=== PATIENT | male | born 1955 | race African-American/Black ===

== ENCOUNTER 2017-01-24 12:17 | Emergency (ER) | payer OTHER ==
[~2017-01-24] VITALS: Ht 180.3 cm; Wt 81.6 kg
[~2017-01-24 12:17] MED LIST: AMOXICILLIN500 MG PO; ASPIR 8181 MG ORAL; AURALGAN OTIC S14 ML LEFT EAR; BENAZEPRIL HCL10 MG ORAL; ERYTHROMYCIN3.5 GM BOTH EYES; GERD MEDICINE; HYDROC; IBUPROFEN600 MG ORAL; ILOTYCIN3.5 GM TOP; VICODIN 5-5001 EACH PO
[2017-01-24] MEDS ORDERED: IBUPROFEN600 MG ORAL (14:09)
[2017-01-24 14:25] VITALS: BP 139/89
--- NOTE | 2017-01-24 15:28 | Diagnostic Imaging Report ---
Indication: Pain Findings: 3 views of the right wrist were obtained. No acute fracture or malalignment identified. There is an old healed fracture of the fifth metacarpal. Soft tissues are unremarkable. Impression: No acute injury
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
== END 2017-01-24 14:25 | disposition home or self-care (01) ==
LOC: EMR 13:08
DX: S63.501A Unspecified sprain of right wrist, initial encounter (principal); V09.9XXA Pedestrian injured in unspecified transport accident, initial encounter; Y93.55 Activity, bike riding; Y92.410 Unspecified street and highway as the place of occurrence of the external cause; Z88.6 Allergy status to analgesic agent; I10 Essential (primary) hypertension; M19.90 Unspecified osteoarthritis, unspecified site; S60.221A Contusion of right hand, initial encounter
CPT/HCPCS: 99283

== ENCOUNTER 2017-06-02 09:14 | Emergency (ER) | payer OTHER ==
[~2017-06-02] VITALS: Ht 180.3 cm; Wt 81.6 kg
[2017-06-02 09:15] VITALS: BP 143/102
[2017-06-02] MEDS ORDERED: ROBAXIN-750750 MG PO (09:36)
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
[2017-06-02] MEDS ORDERED: Methocarbamol 750mg tab ORAL ONE (09:45)
[2017-06-02] MEDS ORDERED: Ketorolac 60mg Inj IM ONE (09:45)
[2017-06-02 09:53] VITALS: BP 134/93
[2017-06-02 09:56] VITALS: BP 134/93
== END 2017-06-02 09:56 | disposition home or self-care (01) ==
LOC: EMR 09:23
DX: M54.5 Low back pain (principal); G89.29 Other chronic pain; I10 Essential (primary) hypertension; J45.909 Unspecified asthma, uncomplicated; K21.9 Gastro-esophageal reflux disease without esophagitis; M19.90 Unspecified osteoarthritis, unspecified site; Z88.6 Allergy status to analgesic agent
CPT/HCPCS: 96372; 99283

== ENCOUNTER 2017-06-13 09:11 | Emergency (ER) | payer OTHER ==
[~2017-06-13] VITALS: Ht 180.3 cm; Wt 83.9 kg
[~2017-06-13 09:11] MED LIST changes: +ROBAXIN-750750 MG PO
[2017-06-13 09:21] VITALS: BP 149/94
[2017-06-13] MEDS ORDERED: PERCOCET 5-3251 EACH ORAL (09:36)
[2017-06-13] MEDS ORDERED: Ketorolac 30mg Inj IM ONE (09:45)
[2017-06-13 09:53] VITALS: BP 145/87
--- NOTE | 2017-06-13 13:48 | Emergency Room Report ---
History of Present Illness General Chief Complaint: Pain Source: Patient, Medical Record Present Illness HPI Patient presents emergency department today complaining of lower back pain and left leg pain. Patient states that he has is to sciatica. He denies any chest pain shortness breath. Denies any trauma. States any some pain medications. He has been taking medications that was prescribed the ER without much improvement. Review medical records show the patient was on Robaxin. Patient is not taking any narcotics. No other complaints are noted. Symptoms noted to be moderate to severe. Patient denies any dysuria or difficulty with urination or urinary frequency.No other modifying factors. No other associated signs and symptoms. No other complaints were noted. Allergies: Coded Allergies: CODEINE (Verified Allergy, Unknown, 10/01/16) Patient History Past Medical History: HTN, asthma, other - gerd Past Surgical History: none Pertinent Family History: none Social History: Denies: alcohol use, drug use, smoking Reviewed Nursing Documentation: PMH: Agreed, PSxH: Agreed Nursing Documentation-PMH Past Medical History: No History, Except For Hx Hypertension: Yes Hx Asthma: Yes Hx Gastrointestinal Problems: Yes - GERD Hx Neurological Problems: Yes - ARTHITIS Review of Systems All Other Systems: negative except mentioned in HPI Physical Exam Vital Signs Date Time Temp Pulse Resp B/P Pulse Ox O2 Delivery O2 Flow Rate FiO2 06/13/17 09:13 98.1 64 16 149/94 98 Room Air Sp02 EP Interpretation: reviewed, normal General Appearance: normal inspection, well appearing, no apparent distress, alert Head: atraumatic Eyes: bilateral eye normal inspection ENT: normal ENT inspection, hearing grossly normal, normal voice Neck: normal inspection, full range of motion, supple, no bony tend Respiratory: normal inspection, lungs clear, normal breath sounds, no respiratory distress, no retraction, no wheezing Cardiovascular #1: regular rate, rhythm, no edema Gastrointestinal: normal inspection, normal bowel sounds, non tender, soft, no guarding, no hernia Genitourinary: no CVA tenderness Musculoskeletal: normal inspection, back normal, normal range of motion Neurologic: normal inspection, alert, responsive, speech normal Psychiatric: normal inspection, judgement/insight normal, mood/affect normal Skin: normal inspection, normal color, no rash Medical Decision Making Diagnostic Impression: Primary Impression: Lower back pain ER Course Patient presents emergency department today complaining lower back pain. Differential considerations include fracture dislocation versus strain versus radiculopathy. Given patient has had prior episodes before I felt the patient was fairly low risk. I did offer x-rays but he declined. Patient requested pain medications. Patient was given one dose of Toradol and prescription for pain medications here recommend close outpatient followup.Patient is advised to follow up with primary doctor in 2-3 days and return the emergency room for any worsening symptoms and as needed. Last Vital Signs Date Time Temp Pulse Resp B/P Pulse Ox O2 Delivery O2 Flow Rate FiO2 06/13/17 09:53 98.1 65 16 145/87 98 Room Air Status: improved Disposition: HOME, SELF-CARE Condition: Stable Scripts Oxycodone/Acetaminophen 5-325* (PERCOCET 5-325 MG TABLET*) 1 Each Tablet 1 TAB ORAL Q6H Y for For Pain, #30 TAB Prov: SUGAR BALDERAS M.D. 06/13/17 [facility] (PCP) Patient Instructions: Sciatica, Sciatica, [id number] SUGAR BALDERAS M.D. Jun 13, 2017 13:48
== END 2017-06-13 09:55 | disposition home or self-care (01) ==
LOC: EMR 09:45
DX: M54.5 Low back pain (principal); M79.605 Pain in left leg; I10 Essential (primary) hypertension; J45.909 Unspecified asthma, uncomplicated; Z88.6 Allergy status to analgesic agent; K21.9 Gastro-esophageal reflux disease without esophagitis
CPT/HCPCS: 96372; 99283; J1885

== ENCOUNTER 2017-10-01 08:52 | Emergency (ER) | payer OTHER ==
[~2017-10-01] VITALS: Ht 180.3 cm; Wt 79.4 kg
[~2017-10-01 08:52] MED LIST changes: +PERCOCET 5-3251 EACH ORAL
[2017-10-01 09:05] VITALS: BP 130/83
[2017-10-01] MEDS ORDERED: FLONASE ALLERG9.9 ML NS (09:54)
[2017-10-01 09:55] VITALS: BP 130/83
--- NOTE | 2017-10-01 13:36 | Emergency Room Report ---
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." Denies fever/chills, ear pain Nasal congestion Allergies: Coded Allergies: CODEINE (Verified Allergy, Unknown, 10/01/16) Patient History Past Medical History: other - Known left TM rupture Past Surgical History: none Pertinent Family History: none Social History: Denies: smoking, alcohol use, drug use Immunizations: UTD Reviewed Nursing Documentation: PMH: Agreed, PSxH: Agreed Nursing Documentation-PMH Hx Hypertension: Yes Hx Asthma: Yes Hx Gastrointestinal Problems: Yes - GERD Hx Neurological Problems: Yes - ARTHITIS Review of Systems All Other Systems: negative except mentioned in HPI Physical Exam Vital Signs Date Time Temp Pulse Resp B/P (MAP) Pulse Ox O2 Delivery O2 Flow Rate FiO2 10/01/17 09:05 97.9 63 17 130/83 97 Room Air Sp02 EP Interpretation: reviewed, normal General Appearance: normal inspection, well appearing, no apparent distress, alert, GCS 15, non-toxic Head: normocephalic, atraumatic Eyes: bilateral eye PERRL, bilateral eye EOMI ENT: normal ENT inspection, hearing grossly normal, normal voice, nasal congestion, other - left TM congetion, small TM rupture. Non pinna ttp. No discharge in canal. Right TM normal Neck: normal inspection, full range of motion, supple, no bony tend Respiratory: normal inspection, lungs clear, normal breath sounds, no respiratory distress, no retraction, no wheezing Cardiovascular #1: regular rate, rhythm, no edema Gastrointestinal: normal inspection, normal bowel sounds, non tender, soft, no guarding, no hernia Genitourinary: no CVA tenderness Musculoskeletal: normal inspection, back normal, normal range of motion, Marisel' s Sign negative Neurologic: normal inspection, alert, responsive, speech normal Psychiatric: normal inspection, judgement/insight normal, mood/affect normal Skin: normal inspection, normal color, no rash Medical Decision Making Diagnostic Impression: Primary Impression: Earache symptoms in left ear Additional Impressions: Nasal congestion Perforated left tympanic membrane on examination ER Course Nasal congestion, ?chronic left TM rupture Advised STOP drops or any fluid into left ear Flonase to ease sinus congestion F/up with PMD or ENT Last Vital Signs Date Time Temp Pulse Resp B/P (MAP) Pulse Ox O2 Delivery O2 Flow Rate FiO2 10/01/17 09:55 97.9 62 17 130/83 100 Room Air Status: improved Disposition: HOME, SELF-CARE Condition: Improved Scripts Fluticasone Propionate (Flonase Allergy Relief) 9.9 Ml [place].susp 9.9 ML NS BID for 7 Days, #1 UNIT Prov: JEWEL CORNEJO M.D. 10/01/17 Referrals: NON PHYSICIAN (PCP) Patient Instructions: Eardrum Perforation, [id number] JEWEL CORNEJO M.D. Oct 01, 2017 13:36
== END 2017-10-01 09:55 | disposition home or self-care (01) ==
LOC: EMR 09:54
DX: H92.02 Otalgia, left ear (principal); R09.81 Nasal congestion; H72.92 Unspecified perforation of tympanic membrane, left ear; I10 Essential (primary) hypertension; J45.909 Unspecified asthma, uncomplicated; Z88.6 Allergy status to analgesic agent; K21.9 Gastro-esophageal reflux disease without esophagitis
CPT/HCPCS: 99283

== ENCOUNTER 2017-10-05 13:34 | Emergency (ER) | payer OTHER ==
[~2017-10-05] VITALS: Ht 180.3 cm; Wt 79.4 kg
[~2017-10-05 13:34] MED LIST changes: +FLONASE ALLERG9.9 ML NS
[2017-10-05 14:01] VITALS: BP 130/82
[2017-10-05] MEDS ORDERED: NAPROXEN500 M2 ORAL (14:03)
[2017-10-05] MEDS ORDERED: CORTISPORIN EAR10 ML LEFT EAR (14:03)
[2017-10-05 14:10] VITALS: BP 130/88
--- NOTE | 2017-10-05 14:41 | Emergency Room Report ---
History of Present Illness General Chief Complaint: Earache Source: Patient Present Illness HPI The patient is a 62 yo M presenting for left ear pain which began 4 days ago. Pain is a 10 out of 10 dull ache and does not radiate from the left ear. Worse with touch. he states that he frequently gets ear infections and this feels the same. He denies any other symptoms including N, V, F, chills, SOB, CP, rash, sore throat, cough Allergies: Coded Allergies: CODEINE (Verified Allergy, Unknown, 10/01/16) Patient History Past Medical History: see triage record Pertinent Family History: none Reviewed Nursing Documentation: PMH: Agreed, PSxH: Agreed Nursing Documentation-PMH Hx Hypertension: Yes Hx Asthma: Yes Hx Gastrointestinal Problems: Yes - GERD Hx Neurological Problems: Yes - ARTHITIS Review of Systems All Other Systems: negative except mentioned in HPI Physical Exam Vital Signs Date Time Temp Pulse Resp B/P (MAP) Pulse Ox O2 Delivery O2 Flow Rate FiO2 10/05/17 13:41 97.9 62 20 134/90 99 10/05/17 14:01 Room Air Sp02 EP Interpretation: reviewed, normal General Appearance: no apparent distress, alert, GCS 15, non-toxic Head: normocephalic, atraumatic Eyes: bilateral eye normal inspection, bilateral eye PERRL ENT: uvula midline, other - L EAC has white DC. TTP Neck: full range of motion, supple/symm/no masses Respiratory: chest non-tender, lungs clear, normal breath sounds, speaking full sentences Cardiovascular #1: regular rate, rhythm, no edema Musculoskeletal: back normal, gait/station normal, normal range of motion, non- tender Neurologic: alert, oriented x3, responsive, motor strength/tone normal, sensory intact, speech normal Psychiatric: judgement/insight normal, memory normal, mood/affect normal, no suicidal/homicidal ideation Skin: normal color, no rash, warm/dry, well hydrated Lymphatic: no adenopathy Medical Decision Making PA Attestation Dr. Ortiz is my supervising physician. Patient management was discussed with my supervising physician Diagnostic Impression: Primary Impression: Otitis externa of left ear Qualified Codes: H60.502 - Unspecified acute noninfective otitis externa, left ear ER Course The patient is a 62 yo M presenting for left ear pain which began 4 days ago Differential diagnosis include but not limited to otitis externa, otitis media, mastoiditis, sinusitis, pharyngitis Physical exam: Vitals within normal limits. No apparent distress. HEENT: Left ear external auditory canal is erythematous and edematous. White discharge is noted. Tympanic membrane is intact. No bulging. There is no cervical lymphadenopathy. Otherwise exam is unremarkable The patient will be discharged home with a prescription for Cortisporin Last Vital Signs Date Time Temp Pulse Resp B/P (MAP) Pulse Ox O2 Delivery O2 Flow Rate FiO2 10/05/17 14:10 97.9 72 19 130/88 99 Room Air Status: improved Disposition: HOME, SELF-CARE Condition: Improved Scripts Naproxen* (NAPROXEN*) 500 Mg Tablet 500 MG ORAL TWICE A DAY, #30 TAB Prov: HERMAN PARRA 10/05/17 Neomycin/Polymyxin B Sulf/Hc* (CORTISPORIN EAR SOLUTION*) 10 Ml Solution 4 DROP LEFT EAR QID, #10 ML 0 Refills Prov: HERMAN PARRA 10/05/17 Referrals: [facility] (PCP) Patient Instructions: Otitis Externa Additional Instructions: I discussed my findings with the patient. All questions and concerns have been answered. Treatment and medication compliance have been addressed. I advised the patient that they need to follow up with PMD in 3-5 days. Return to ED if symptoms worsen, new symptoms arise, or if needed for any reason. Patient verbalized understanding of discharge instructions. HERMAN PARRA Oct 05, 2017 14:41
== END 2017-10-05 14:10 | disposition home or self-care (01) ==
LOC: EMR 13:49
DX: H60.92 Unspecified otitis externa, left ear (principal); J45.909 Unspecified asthma, uncomplicated; I10 Essential (primary) hypertension; K21.9 Gastro-esophageal reflux disease without esophagitis; Z88.6 Allergy status to analgesic agent
CPT/HCPCS: 99284

== ENCOUNTER → 2017-10-21 | Emergency (ER) | payer OTHER ==
[~2017-10-21] VITALS: Ht 180.3 cm; Wt 81.6 kg
[~2017-10-21] MED LIST changes: +CORTISPORIN EAR10 ML LEFT EAR; +NAPROXEN500 M2 ORAL
[2017-10-21 11:09] VITALS: BP 136/88
--- NOTE | 2017-10-25 08:35 | Emergency Room Report ---
History of Present Illness General Chief Complaint: Earache Present Illness HPI Patient is a 62 year old male who presented after increased left ear discomfort and difficulty hearing. Patient had previously been using ear drops for swimmers ear. He reported previous surgery on left eardrum after perforation. He denies any fever or leakage of fluid. He denied cough or nasal congestion or recent trauma. Allergies: Coded Allergies: CODEINE (Verified Allergy, Unknown, 10/01/16) Patient History Past Medical History: see triage record Reviewed Nursing Documentation: PMH: Agreed, PSxH: Agreed Nursing Documentation-PMH Hx Hypertension: Yes Hx Asthma: Yes Hx Gastrointestinal Problems: Yes - GERD Hx Neurological Problems: Yes - ARTHITIS Review of Systems All Other Systems: negative except mentioned in HPI Physical Exam Vital Signs Date Time Temp Pulse Resp B/P (MAP) Pulse Ox O2 Delivery O2 Flow Rate FiO2 10/21/17 11:09 97.9 84 20 136/88 99 Room Air General Appearance: well appearing, no apparent distress, alert, GCS 15 Head: normocephalic, atraumatic ENT: hearing grossly normal, normal voice, other - left ear canal with soft yellow cerumen, no bleeding, tM obscured by wax, minimal canal swelliing Neck: full range of motion, supple Respiratory: no respiratory distress, speaking full sentences Musculoskeletal: no calf tenderness Neurologic: normal gait Psychiatric: mood/affect normal Skin: no rash Medical Decision Making Diagnostic Impression: Primary Impression: Otitis externa of left ear Additional Impression: Excessive cerumen in left ear canal ER Course Patient presented for left ear pain. Differential diagnosis included but was not limited to otitis media, cerumen impaction, foreign body, perforated eardrum , mastoiditis, among others. Patient has a benign exam and does not appear to require lab testing or imaging at this time. Cerumen was removed with a curette followed by irrigation. Patient was advised on care for ear. He was advised to follow up with his physician for recheck in the next few days. He was to continue his eardrops for external otitis. He was to return for fever, increased pain or other concerns. Last Vital Signs Date Time Temp Pulse Resp B/P (MAP) Pulse Ox O2 Delivery O2 Flow Rate FiO2 10/21/17 11:09 97.9 84 20 136/88 99 Room Air Status: improved Disposition: HOME, SELF-CARE Condition: Improved Referrals: [facility] ([facility]P) Patient Instructions: Otitis Externa Ramiro Hendrix Oct 25, 2017 08:35
== END | disposition home or self-care (01) ==
LOC: EMR 11:40
DX: H60.92 Unspecified otitis externa, left ear (principal); H61.22 Impacted cerumen, left ear; I10 Essential (primary) hypertension; K21.9 Gastro-esophageal reflux disease without esophagitis; Z88.6 Allergy status to analgesic agent
CPT/HCPCS: 69210; 99282

== ENCOUNTER 2018-02-25 17:57 | Emergency (ER) | payer MEDICARE, OTHER ==
[~2018-02-25] VITALS: Ht 180.3 cm; Wt 81.6 kg
--- NOTE | 2018-02-25 19:04 | Emergency Room Report ---
History of Present Illness General Chief Complaint: Upper Respiratory Illness Source: Patient Present Illness HPI 63-year-old male presents to the emergency department complaining of cough, generalized body-aches, sore throat and subjective fevers and chills 5 days.Pt. states moderate phlegm in his throat. Patient states he has been attempting remedies at home however he has not gotten better. Patient denies swelling of the lower extremities, productive cough, headache, dizziness, nausea or vomiting. Denies Palpitations, LOC, AMS, dizziness, Changes in Vision , Sensation, paresthesias, or a sudden severe headache. Denies recent travel or ill contacts. Allergies: Coded Allergies: CODEINE (Verified Allergy, Unknown, 10/01/16) Patient History Past Medical History: see triage record Past Surgical History: none Pertinent Family History: none Reviewed Nursing Documentation: PMH: Agreed; PSxH: Agreed Nursing Documentation-PMH Hx Hypertension: Yes Hx Asthma: Yes Hx Gastrointestinal Problems: Yes - GERD Hx Neurological Problems: Yes - ARTHITIS Review of Systems All Other Systems: negative except mentioned in HPI Physical Exam Vital Signs Date Time Temp Pulse Resp B/P (MAP) Pulse Ox O2 Delivery O2 Flow Rate FiO2 02/25/18 18:03 98.7 70 19 98.8 02/25/18 18:19 Room Air Sp02 EP Interpretation: reviewed - initially missing from triage, re-measured at 96%, normal General Appearance: no apparent distress, alert, GCS 15, non-toxic Head: normocephalic, atraumatic Eyes: bilateral eye normal inspection, bilateral eye PERRL ENT: hearing grossly normal, normal voice, TMs + canals normal, uvula midline, moist mucus membranes, nasal congestion, pharyngeal erythema Neck: full range of motion Respiratory: chest non-tender, lungs clear, normal breath sounds, no respiratory distress, no accessory muscle use, no wheezing, speaking full sentences Cardiovascular #1: regular rate, rhythm, no edema, normal capillary refill Gastrointestinal: non tender, soft Musculoskeletal: back normal, gait/station normal, normal range of motion, non- tender Neurologic: alert, oriented x3, responsive, motor strength/tone normal, sensory intact, normal gait, speech normal, grossly normal Psychiatric: judgement/insight normal Skin: normal color, no rash, warm/dry, well hydrated Lymphatic: no adenopathy Medical Decision Making PA Attestation Dr. trejo is my supervising Physician whom patient management has been discussed with. Diagnostic Impression: Primary Impression: Bronchitis Additional Impression: Upper respiratory infection Qualified Codes: J06.9 - Acute upper respiratory infection, unspecified ER Course 63-year-old male presents to the emergency department complaining of cough, generalized body-aches, sore throat and subjective fevers and chills 5 days.Pt. states moderate phlegm in his throat. Patient states he has been attempting remedies at home however he has not gotten better. Patient denies swelling of the lower extremities, productive cough, headache, dizziness, nausea or vomiting. Denies Palpitations, LOC, AMS, dizziness, Changes in Vision , Sensation, paresthesias, or a sudden severe headache. Denies recent travel or ill contacts. Ddx considered but are not limited to URI, pneumonia, PE, strep pharyngitis, meningitis. Vital signs: Pt.is afebrile VS are WNL H&PE are most consistent with bronchitis---NAD, nontoxic in appearance no evidence of acute bacterial infection at this time. Is oxygenating well and does not show difficult to breathing. ORDERS: none required at this time, the diagnosis is clinical ED INTERVENTIONS: None required at this time. DISCHARGE: At this time pt. is stable for d/c to home. Will provide printed patient care instructions, and any necessary prescriptions. Care plan and follow up instructions have been discussed with the patient prior to discharge. Last Vital Signs Date Time Temp Pulse Resp B/P (MAP) Pulse Ox O2 Delivery O2 Flow Rate FiO2 02/25/18 18:19 70 19 Room Air 02/25/18 18:03 98.7 98.8 Disposition: HOME, SELF-CARE Condition: Stable Scripts Albuterol Sulfate* (ALBUTEROL SULFATE MDI*) 8.5 Gm Hfa.aer.ad 2 PUFF INH Q4H, #1 INH 0 Refills Prov: Lien Higuera P.A. 02/25/18 Acetaminophen* (TYLENOL EXTRA STRENGTH*) 500 Mg Tablet 500 MG ORAL Q6H PRN for Mild Pain/Temp > 100.5, #20 TAB 0 Refills Prov: Lien Higuera P.A. 02/25/18 Guaifenesin (Guaifenesin) 1,200 Mg Tab.er.12h 1200 MG PO BID for 10 Days, #20 TAB Prov: Lien Higuera 02/25/18 D-Methorphan Hb/Prometh Hcl* (PROMETHAZINE-DM SYRUP*) 118 Ml Syrup 5 ML ORAL Q6H PRN for For Cough, #120 ML 0 Refills Prov: Lien Higuera 02/25/18 Patient Instructions: Upper Respiratory Infection, Adult Additional Instructions: Take medications as directed. Follow up with a Primary Care Provider in 3-5 days, even if your symptoms have resolved. --Please review list of primary care clinics, if you do not already have a primary care provider Return sooner to ED if new symptoms occur, or current symptoms become worse. Do not drink alcohol, drive, or operate heavy machinery while taking Cough Syrup as this may cause drowsiness. - Please note that this Emergency Department Report was dictated using [employer] puller technology software, occasionally this can lead to erroneous entry secondary to interpretation by the dictation equipment. Lien Higuera Feb 25, 2018 19:03
[2018-02-25] MEDS ORDERED: GUAIFENESIN1200 MG PO (19:08)
[2018-02-25] MEDS ORDERED: PROMETHAZINE-D118 ML ORAL (19:08)
[2018-02-25] MEDS ORDERED: ALBUTEROL SULF8.5 GM INH (19:08)
[2018-02-25] MEDS ORDERED: TYLENOL EXTRA500 MG ORAL (19:08)
[2018-02-25 19:24] VITALS: BP 127/86
== END 2018-02-25 19:24 | disposition home or self-care (01) ==
LOC: EMR 19:15
DX: J40 Bronchitis, not specified as acute or chronic (principal); J06.9 Acute upper respiratory infection, unspecified; Z88.5 Allergy status to narcotic agent; K21.9 Gastro-esophageal reflux disease without esophagitis; M19.90 Unspecified osteoarthritis, unspecified site
CPT/HCPCS: 99284

== ENCOUNTER 2018-04-05 12:52 | Emergency (ER) | payer MEDICARE, OTHER ==
[~2018-04-05] VITALS: Ht 180.3 cm; Wt 81.6 kg
[~2018-04-05 12:52] MED LIST changes: +ALBUTEROL SULF8.5 GM INH; +GUAIFENESIN1200 MG PO; +PROMETHAZINE-D118 ML ORAL; +TYLENOL EXTRA500 MG ORAL
[2018-04-05 13:05] VITALS: BP 146/101
[2018-04-05] MEDS ORDERED: Norco 5mg/325mg tab ORAL ONE (13:15)
--- NOTE | 2018-04-05 13:18 | Emergency Room Report ---
History of Present Illness General Chief Complaint: Skin Rash/Abscess Present Illness HPI 63-year-old male presents to the emergency department complaining of localized swelling, tenderness, erythema to the lateral aspect of his lower eyelid 4 days. Patient reports that he is experiencing 10 out of 10 in severity pain which is exacerbated when he attempts to sleep and accidentally rolls onto the left side. Patient states that he has an appointment with client technical professional tomorrow for incision and drainage. Patient reports he has a history of similar symptoms on the right eye which required the same treatment. Patient denies history of foreign object in his eye, he reports some itching prior to onset he denies discharge. Denies Discharge, Loss of vision, Floaters, Flashing lights, Diplopia/blurry vision, Increased tearing. Allergies: Coded Allergies: CODEINE (Verified Allergy, Unknown, 10/01/16) Patient History Past Medical History: see triage record Past Surgical History: none Pertinent Family History: none Reviewed Nursing Documentation: PMH: Agreed; PSxH: Agreed Nursing Documentation-PMH Hx Hypertension: Yes Hx Asthma: Yes Hx Gastrointestinal Problems: Yes - GERD Hx Neurological Problems: Yes - ARTHITIS Review of Systems All Other Systems: negative except mentioned in HPI Physical Exam Vital Signs Date Time Temp Pulse Resp B/P (MAP) Pulse Ox O2 Delivery O2 Flow Rate FiO2 18 13:00 98.3 84 20 146/101 99 Room Air 98.2 Sp02 EP Interpretation: reviewed, normal General Appearance: no apparent distress, alert, GCS 15, non-toxic Head: normocephalic, atraumatic Eyes: bilateral eye normal inspection, bilateral eye PERRL, bilateral eye EOMI , bilateral eye other - well circumscribed 1cm ENT: hearing grossly normal, normal voice Neck: full range of motion Respiratory: chest non-tender, lungs clear, normal breath sounds, speaking full sentences Cardiovascular #1: regular rate, rhythm, no edema Gastrointestinal: normal bowel sounds, non tender, soft Rectal: deferred Genitourinary: normal inspection Musculoskeletal: back normal, gait/station normal, normal range of motion, non- tender Neurologic: alert, oriented x3, responsive, motor strength/tone normal, sensory intact, speech normal, grossly normal Psychiatric: judgement/insight normal Skin: normal color, no rash, warm/dry, well hydrated Lymphatic: no adenopathy Medical Decision Making PA Attestation Dr. Keyes is my supervising Physician whom patient management has been discussed with. Diagnostic Impression: Primary Impression: Hordeolum external Qualified Codes: H00.015 - Hordeolum externum left lower eyelid ER Course 63-year-old male presents to the emergency department complaining of localized swelling, tenderness, erythema to the lateral aspect of his lower eyelid 4 days. Patient reports that he is experiencing 10 out of 10 in severity pain which is exacerbated when he attempts to sleep and accidentally rolls onto the left side. Patient states that he has an appointment with client technical professional tomorrow for incision and drainage. Patient reports he has a history of similar symptoms on the right eye which required the same treatment. Patient denies history of foreign object in his eye, he reports some itching prior to onset he denies discharge. Denies Discharge, Loss of vision, Floaters, Flashing lights, Diplopia/blurry vision, Increased tearing. Ddx considered but are not limited to: FB, Corneal Ulcer, conjunctivitis. Iridis, hordeolum, chalazion. Vital signs: are WNL, pt. is afebrile H&PE are most consistent with: infected hordeolum externum of the left lower eyelid. ORDERS: None required at this time ED INTERVENTIONS: - Pain medication PO - d/w pt. to follow up tomorrow at his scheduled ophthalmology appt. return with worsening or new symptoms. DISCHARGE: At this time pt. is stable for d/c to home. Will provide printed patient care instructions, and any necessary prescriptions. Care plan and follow up instructions have been discussed with the patient prior to discharge. Last Vital Signs Date Time Temp Pulse Resp B/P (MAP) Pulse Ox O2 Delivery O2 Flow Rate FiO2 04/05/18 13:05 98.2 84 20 146/101 99 Room Air 98.2 Disposition: HOME, SELF-CARE Condition: Stable Scripts Hydrocodone Bit/Acetaminophen 5-325* (NORCO 5-325*) 1 Each Tablet 1 TAB ORAL Q6H PRN for For Pain, #3 TAB 0 Refills Prov: Lien Higuera P.A. 04/05/18 Cephalexin* (KEFLEX*) 500 Mg Capsule 500 MG ORAL EVERY 12 HOURS for 7 Days, #14 CAP 0 Refills Prov: Lien Higuera P.A. 5/20/18 Olopatadine Hcl (PATADAY) 2.5 Ml Drops 1 DROP OP DAILY, #2.5 ML Prov: Lien Higuera 04/05/18 Erythromycin Base (ERYTHROMYCIN*) 3.5 Gm Oint...g. 1 APPLIC LEFT EYE BID, #3.5 GM 0 Refills Prov: Lien Higuera 04/05/18 Patient Instructions: Stye Additional Instructions: Take medications as directed. Follow up with your NET SQL DEVELOPER Tomorrow even if your symptoms have resolved. --Please review list of primary care clinics, if you do not already have a primary care provider Return sooner to ED if new symptoms occur, or current symptoms become worse. Do not drink alcohol, drive, or operate heavy machinery while taking [place] as this may cause drowsiness. - Please note that this Emergency Department Report was dictated using [employer] operations manager technology software, occasionally this can lead to erroneous entry secondary to interpretation by the dictation equipment. Lien Higuera April 05, 2018 13:18
[2018-04-05] MEDS ORDERED: NORCO 5-325 TA1 EACH ORAL (13:28)
[2018-04-05] MEDS ORDERED: PATADAY2.5 ML OP (13:28)
[2018-04-05] MEDS ORDERED: CEPHALEXIN500 MG ORAL (13:28)
[2018-04-05] MEDS ORDERED: ERYTHROMYCIN3.5 GM LEFT EYE (13:28)
[2018-04-05 13:35] VITALS: BP 146/101
== END 2018-04-05 13:35 | disposition home or self-care (01) ==
LOC: EMR 13:21
DX: H00.015 Hordeolum externum left lower eyelid (principal); J45.909 Unspecified asthma, uncomplicated; K21.9 Gastro-esophageal reflux disease without esophagitis; I10 Essential (primary) hypertension
CPT/HCPCS: 99284

== ENCOUNTER 2018-08-09 11:25 | Emergency (ER) | payer MEDICARE, OTHER ==
[~2018-08-09] VITALS: Ht 180.3 cm; Wt 81.6 kg
[~2018-08-09 11:25] MED LIST changes: +CEPHALEXIN500 MG ORAL; +ERYTHROMYCIN3.5 GM LEFT EYE; +NORCO 5-325 TA1 EACH ORAL; +PATADAY2.5 ML OP
[2018-08-09 12:05] VITALS: BP 121/81
[2018-08-09] MEDS ORDERED: PREDNISONE20 MG ORAL (12:41)
[2018-08-09] MEDS ORDERED: CALAMINE LOTIO177 ML TP (12:41)
[2018-08-09 12:50] VITALS: BP 121/81
--- NOTE | 2018-08-09 14:15 | Emergency Room Report ---
History of Present Illness General Chief Complaint: Animal Bite Source: Patient Present Illness HPI Patient present with complaints of red spots in his lower legs bilaterally and itching Patient reports that he was at a fair last week soon after the itching started He reports that his dog also had insect bites and was seen by the studio director Denies any fevers or chills denies any other spread of the rash Denies any neck pain or photophobia The area is moderately itchy in nature Allergies: Coded Allergies: CODEINE (Verified Allergy, Unknown, 10/01/16) Patient History Past Medical History: see triage record Pertinent Family History: none Reviewed Nursing Documentation: PMH: Agreed; PSxH: Agreed Nursing Documentation-PMH Past Medical History: No History, Except For Hx Hypertension: Yes Hx Asthma: Yes Hx Gastrointestinal Problems: Yes - GERD Hx Neurological Problems: Yes - ARTHITIS Review of Systems All Other Systems: negative except mentioned in HPI Physical Exam Vital Signs Date Time Temp Pulse Resp B/P (MAP) Pulse Ox O2 Delivery O2 Flow Rate FiO2 08/09/18 11:31 98.4 87 18 121/81 96 Room Air 98.4 Sp02 EP Interpretation: reviewed, normal General Appearance: well appearing, no apparent distress Head: normocephalic, atraumatic Eyes: bilateral eye PERRL, bilateral eye EOMI ENT: hearing grossly normal, normal pharynx Neck: supple Respiratory: lungs clear Cardiovascular #1: regular rate, rhythm Musculoskeletal: normal inspection, back normal Neurologic: alert, oriented x3 Skin: other - Several areas of circular rash mildly raised, no obvious streaking no scab formation, no fluctuance appear to be likely consistent with insect bites, Lymphatic: no adenopathy Medical Decision Making Diagnostic Impression: Primary Impression: insect bite ER Course Given the patient's history exam and findings Consistent with likely insect bites They do not appear secondarily infected patient is treated symptomatically and is stable for initial conservative outpatient follow-up Last Vital Signs Date Time Temp Pulse Resp B/P (MAP) Pulse Ox O2 Delivery O2 Flow Rate FiO2 08/09/18 12:50 98.4 87 18 121/81 96 Room Air Status: unchanged Disposition: HOME, SELF-CARE Condition: Stable Scripts Calamine/Zinc Oxide (CALAMINE LOTION*) 177 Ml Suspension 1 APPLIC TP BID for 7 Days, ML 0 Refills Prov: Mikel Keyes DO 08/09/18 Prednisone* (PREDNISONE*) 20 Mg Tablet 20 MG ORAL BID, #6 TAB Prov: Mikel Keyes DO 08/09/18 Referrals: NON PHYSICIAN (PCP) Patient Instructions: Insect Bite, [id number] Additional Instructions: Patient is provided with the discharge instructions notified to follow up with primary doctor in the next 2-3 days otherwise return to the er with any worsening symptoms. Please note that this report is being documented using DR[employer]ON technology. This can lead to erroneous entry secondary to incorrect interpretation by the dictating instrument. Mikel Keyes DO Aug 09, 2018 14:15
== END 2018-08-09 12:53 | disposition home or self-care (01) ==
LOC: EMR 11:57
DX: S80.862A Insect bite (nonvenomous), left lower leg, initial encounter (principal); S80.861A Insect bite (nonvenomous), right lower leg, initial encounter; W57.XXXA Bitten or stung by nonvenomous insect and other nonvenomous arthropods, initial encounter; Y92.9 Unspecified place or not applicable; R21 Rash and other nonspecific skin eruption; I10 Essential (primary) hypertension; E11.9 Type 2 diabetes mellitus without complications; Z88.5 Allergy status to narcotic agent; K21.9 Gastro-esophageal reflux disease without esophagitis
CPT/HCPCS: 99283

== ENCOUNTER 2019-06-30 09:06 | Emergency (ER) | payer MEDICARE, OTHER ==
[~2019-06-30] VITALS: Ht 180.3 cm; Wt 79.4 kg
[~2019-06-30 09:06] MED LIST changes: +CALAMINE LOTIO177 ML TP; +PREDNISONE20 MG ORAL
[2019-06-30 09:28] VITALS: BP 187/115
[2019-06-30] MEDS ORDERED: LET 3ml Soln TOPIC ONE (09:30)
[2019-06-30] MEDS ORDERED: Acetaminophen 500mg (ES) tab ORAL ONE (09:30)
[2019-06-30] MEDS ORDERED: Neosporin Oint Ud Pkt TOPIC ONE (09:30)
--- NOTE | 2019-06-30 09:30 | NUR ---
ED Nurse Note: pt thinks there is a fb in rt big toe ermd eval done awaiting orders.
[2019-06-30] MEDS ORDERED: Cephalexin 500mg cap ORAL ONE (11:00)
--- NOTE | 2019-06-30 11:01 | Emergency Room Report ---
History of Present Illness General Chief Complaint: Pain Source: Patient Present Illness HPI The patient presents with pain in his big toe on the right side. He has been cleaning his deck. He thinks he may have got a piece of glass in the toe. He denies any fevers or chills. Over the last 2 days the pain is increased. The pain is rated 9/10 at this time and aching. Pain does not radiate. There is a spot on the tip of the big toe. His tetanus is up-to-date. There is no numbness. He has a history of hypertension, hepatitis C and asthma. The hepatitis C is been "cleared". Allergies: Coded Allergies: CODEINE (Verified Allergy, Unknown, 10/01/16) Patient History Past Medical History: see triage record Social History: Denies: smoking Social History Narrative Reviewed Nursing Documentation: PMH: Agreed; PSxH: Agreed Nursing Documentation-PMH Hx Hypertension: Yes Hx Asthma: Yes Hx Gastrointestinal Problems: Yes - GERD Hx Neurological Problems: Yes - ARTHITIS Review of Systems Constitutional: Reports: see HPI Musculoskeletal: Reports: see HPI Skin: Reports: see HPI Neurological: Reports: see HPI Physical Exam Vital Signs Date Time Temp Pulse Resp B/P (MAP) Pulse Ox O2 Delivery O2 Flow Rate FiO2 06/30/19 09:12 98.6 81 16 187/115 (139) 97 Room Air Sp02 EP Interpretation: reviewed, normal General Appearance: well appearing, no apparent distress, GCS 15 Head: normocephalic Eyes: bilateral eye normal inspection, bilateral eye PERRL ENT: moist mucus membranes Neck: full range of motion Respiratory: speaking full sentences Cardiovascular #1: regular rate, rhythm Cardiovascular #2: 2+ dorsalis pedis (R) - Good capillary refill Gastrointestinal: normal inspection Musculoskeletal: gait/station normal, normal range of motion, other - No swelling Neurologic: alert, oriented x3, distal neuro normal, grossly normal Psychiatric: mood/affect normal Skin: other - Circular lesion tip of big toe Procedures Incision and Drainage Incision and Drainage : Consent: Verbal Site: Right great toe Blade Size: 11 I & D Procedure: betadine prep, sterile drapes applied, sterile dressing applied Wound Location: other - Right great toe Wound's Depth, Shape: other - Foreign body in toe Wound Explored: contaminated - Pus expressed Anesthesia: other - LET Splint Applied?: No Patient Tolerated: Well Complications: None Progress Unroofing of superficial clot after Betadine prep. Expression of pus. Foreign body removed with tweezers. Pus expressed. Betadine swabbed again. Tolerated well. Medical Decision Making Diagnostic Impression: Primary Impression: Foreign body of toe Qualified Codes: S90.454A - Superficial foreign body, right lesser toe(s), initial encounter ER Course Patient presents with right great toe pain. He believes is a foreign body there. X-rays are indicated. X-rays revealed a piece of metal. Keflex given. After topical anesthesia the foreign body removed. Tolerated well. Discussed treatment plan with patient. Pain improved. Patient stable for outpatient observation and treatment. Other X-Ray Diagnostic Results Other X-Ray Diagnostic Results : X-Ray ordered: Right foot # of Views/Limited Vs Complete: 2 View Indication: Pain EP Interpretation: Yes Interpretation: no dislocation, no soft tissue swelling, no fractures, other - Foreign body Impression: Other Electronically Signed by: Electronically signed by Jerome Griffin MD Last Vital Signs Date Time Temp Pulse Resp B/P (MAP) Pulse Ox O2 Delivery O2 Flow Rate FiO2 06/30/19 11:26 98.6 79 18 158/98 97 Room Air Status: improved Disposition: HOME, SELF-CARE Condition: Improved Scripts Tramadol Hcl* (ULTRAM*) 50 Mg Tablet 50 MG ORAL Q6H PRN for For Pain, #6 TAB 0 Refills Prov: Jerome Griffin MD 06/30/19 Bacitracin (Bacitracin) 28.4 Gm Oint...g. 1 APPLIC TOPIC BID, #10 GM Prov: Jerome Griffin MD 06/30/19 Cephalexin* (KEFLEX*) 500 Mg Capsule 500 MG ORAL EVERY 6 HOURS, #28 CAP Prov: Jerome Griffin MD 06/30/19 Referrals: NON PHYSICIAN (PCP) Jerome Griffin MD Jun 30, 2019 11:01
[2019-06-30] MEDS ORDERED: TRAMADOL HCL50 MG ORAL (11:05)
[2019-06-30] MEDS ORDERED: CEPHALEXIN500 MG ORAL (11:05)
[2019-06-30] MEDS ORDERED: BACITRACIN15 GM TOPIC (11:05)
[2019-06-30 11:26] VITALS: BP 158/98
--- NOTE | 2019-06-30 11:30 | NUR ---
ER DISCHARGE NOTE: Patient is cleared to be discharged per ERMD, pt is aox4, on room air, with stable vital signs. pt was given dc and prescription instructions, pt was able to verbalize understanding, pt id band removed without complications. pt is able to ambulate with steady gait. pt took all belongings. ERD removed small wire from pt's toe. dressing applied with abx ointment see emar
--- NOTE | 2019-06-30 12:03 | Diagnostic Imaging Report ---
Indication: Penetrating injury hallux. Pain hallux Comparison: None Findings: 3 views of the right foot were obtained. There is a small metallic foreign body demonstrated at the tip of the first toe adjacent to the distal phalange. There is no acute fracture. IMPRESSION: Positive for foreign body
== END 2019-06-30 11:30 | disposition home or self-care (01) ==
LOC: EMR 09:30
DX: S90.454A Superficial foreign body, right lesser toe(s), initial encounter (principal); K21.9 Gastro-esophageal reflux disease without esophagitis; M19.90 Unspecified osteoarthritis, unspecified site; I10 Essential (primary) hypertension; Z88.6 Allergy status to analgesic agent; Z86.19 Personal history of other infectious and parasitic diseases; X58.XXXA Exposure to other specified factors, initial encounter; Y92.9 Unspecified place or not applicable
CPT/HCPCS: 99283

== ENCOUNTER 2020-02-01 09:16 | Emergency (ER) | payer MEDICARE, OTHER ==
[~2020-02-01] VITALS: Ht 180.3 cm; Wt 80.7 kg
--- NOTE | 2020-02-01 09:10 | Emergency Room Report ---
History of Present Illness General Chief Complaint: Flu Like Symptoms Source: Patient Present Illness HPI Patient is a 64-year-old male past medical history of asthma who presents to the ER complaining of cough for 1 week. Patient states that he was seen by his doctor last week and told to start antibiotics if his cough persisted past the weekend. Patient complains of yellowish phlegm. He denies any fever, chills, wheezing, shortness of breath, chest pain or nausea. He denies any recent travel. He denies any history of smoking. He denies any sick contacts. He denies any abdominal pain, nausea or vomiting. COVID-19 risk:Travel to affect: No Has patient experienced robbins: Yes Coronavirus symptoms experienc: Cough Allergies: Coded Allergies: No Known Allergies (Unverified , 02/01/20) Patient History Social History: Denies: smoking, alcohol use, drug use Reviewed Nursing Documentation: PMH: Agreed; PSxH: Agreed Nursing Documentation-PMH Hx Cardiac Problems: Yes - ACID REFLUX Hx Asthma: Yes Review of Systems All Other Systems: negative except mentioned in HPI Physical Exam Vital Signs Date Time Temp Pulse Resp B/P (MAP) Pulse Ox O2 Delivery O2 Flow Rate FiO2 02/01/20 08:47 98.4 75 22 154/92 (112) 97 Room Air Sp02 EP Interpretation: reviewed, normal General Appearance: no apparent distress, alert, GCS 15, non-toxic Head: normocephalic, atraumatic Eyes: bilateral eye normal inspection, bilateral eye PERRL ENT: hearing grossly normal, normal pharynx, no angioedema, normal voice Neck: full range of motion, supple/symm/no masses Respiratory: chest non-tender, lungs clear, normal breath sounds, speaking full sentences Cardiovascular #1: regular rate, rhythm, no edema Gastrointestinal: normal bowel sounds, non tender, soft, non-distended, no guarding, no rebound Rectal: deferred Genitourinary: normal inspection, no CVA tenderness Musculoskeletal: back normal, normal range of motion, calf tenderness, gait/ station normal, non-tender Neurologic: alert, motor strength/tone normal, oriented x3, sensory intact, responsive, speech normal Psychiatric: judgement/insight normal, memory normal, mood/affect normal, no suicidal/homicidal ideation Skin: no rash Lymphatic: no adenopathy Medical Decision Making Diagnostic Impression: Primary Impression: Cough Additional Impression: Flu-like symptoms ER Course Patient presents to the emergency room with mild respiratory infection. I explained that this could be due to respiratory infection such as the cold, the flu or Coronavirus Disease. Most people with such infections can get better with appropriate home care and without the need to see a provider. People who are elderly, or have a weak immune system or other medical problems are at a higher risk of more serious illness or complications. I recommend that they carefully monitor their symptoms closely and seek medical care early if their symptoms get worse. I recommend rest, drinking plenty of fluids, taking tved-lse-[id number] cold and flu medications to reduce fever and pain. I noted that these medicines do not cure the illness and therefore do not stop them from spreading the germs. I recommend self quarantine for 14 days. Explained to the patient that we do not do routine Covid-19 testing for mild respiratory infections at [facility] in the Emergency Department. They may obtain it on an outpatient basis. I asked them to call their doctor before going to their office so they can prepare for their visit and note that the patient may have Covid-19. I recommend isolation until tests show that the patient does not have Covid-19 or they are told by the public health department or their primary care physician that they are no longer infectious. After discussing risks and benefits of further diagnostics, treatment plans, as well as indications for and risks of admission, the patient is agreeable to being discharged home. I have explained that their evaluation and treatment in the emergency department today is an important step towards them achieving better health but that their evaluation today is not intended to replace further evaluation and treatment by a physician in their local clinic. I have explained that while the current findings suggest no immediate life threatening emergency they will require further evaluation and treatment by a physician of their choice in their area. They understand that it will be necessary for them to review the final reports of their ED visit with their clinic physician. We have reviewed indications for return to the Emergency Department. I have explained that additional time may need to pass and/or additional testing as an outpatient may be necessary before a definitive diagnosis can be made. They tell me they are willing to follow up as instructed within the timeframe I recommend. They appear to understand what we discussed. Additionally they understand that if they are unable to be seen by an outpatient physician they are welcome, and in fact should, return to the Emergency Department for a repeat evaluation. The patient is stable at time of discharge. Last Vital Signs Date Time Temp Pulse Resp B/P (MAP) Pulse Ox O2 Delivery O2 Flow Rate FiO2 02/01/20 08:47 98.4 75 22 154/92 (112) 97 Room Air Disposition: HOME, SELF-CARE Condition: Stable Scripts Azithromycin* (ZITHROMAX*) 250 Mg Tablet 250 MG ORAL DAILY, #6 TAB 0 Refills Take two tables once daily for 1 day, then one tablet once daily for 4 days. Prov: Becca Bond M.D. 02/01/20 Referrals: [facility] Patient Instructions: Viral Respiratory Infection, Nzyx-[id number], Cough, Adult, [id number], Acute Bronchitis, [id number] Additional Instructions: The patient was provided with discharge instructions, notified to follow-up with a primary care doctor and or specialist in the next 24-48 hours, and to return to the ED if they have worsening of their symptoms. Please note that this report is being documented using [employer] technology. This can lead to erroneous entry secondary to incorrect interpretation by the dictating instrument. Becca Bond M.D. Feb 01, 2020 09:10
[2020-02-01 09:16] VITALS: BP 154/92
[~2020-02-01 09:16] MED LIST changes: +BACITRACIN15 GM TOPIC; +OMEPRAZOLE20 M3 ORAL; +ROBITUSSIN AC5 ML ORAL; +TENORMIN100 MG ORAL; +TRAMADOL HCL50 MG ORAL; +VENTOLIN HFA18 GM INH; +ZITHROMAX250 MG ORAL
== END 2020-02-01 09:20 | disposition home or self-care (01) ==
LOC: EMR 09:17
DX: R05 Cough (principal); K21.9 Gastro-esophageal reflux disease without esophagitis
CPT/HCPCS: 99281

== ENCOUNTER 2021-02-10 12:32 | Emergency (ER) | payer MEDICARE, OTHER ==
[~2021-02-10] VITALS: Ht 180.3 cm; Wt 72.6 kg
[2021-02-10 12:51] VITALS: BP 144/85
--- NOTE | 2021-02-10 12:52 | NUR ---
[facility] TO ER COMPLAINTS OF RIGHT HIP PAIBN AND KNEE PAIN WORSE TODAY
[2021-02-10] MEDS ORDERED: Ketorolac 60mg Inj IM ONE (13:15)
[2021-02-10] MEDS ORDERED: ROBAXIN-750750 MG PO (13:28)
[2021-02-10] MEDS ORDERED: NAPROXEN500 M1 ORAL (13:28)
[2021-02-10] MEDS ORDERED: LIDODERM700 M1 TOPIC (13:28)
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
--- NOTE | 2021-02-10 13:35 | Diagnostic Imaging Report ---
EXAM: XR Left Wrist Complete, 3 or More Views CLINICAL HISTORY: PAIN TECHNIQUE: Frontal, lateral and oblique views of the left wrist. COMPARISON: No relevant prior studies available. FINDINGS: Bones/joints: No acute fracture. Soft tissues: No radiodense foreign body. IMPRESSION: No acute fracture.
--- NOTE | 2021-02-10 13:37 | Diagnostic Imaging Report ---
EXAM: XR Right Hip 2 view CLINICAL HISTORY: PAIN TECHNIQUE: 2 view COMPARISON: No relevant prior studies available. FINDINGS: Bones/joints: No acute fracture. Soft tissues: No radiodense foreign body. IMPRESSION: No acute fracture.
[2021-02-10 13:38] VITALS: BP 144/85
== END 2021-02-10 13:39 | disposition home or self-care (01) ==
LOC: EMR 12:50
DX: G89.29 Other chronic pain (principal); M25.551 Pain in right hip; M25.532 Pain in left wrist; M19.90 Unspecified osteoarthritis, unspecified site; I10 Essential (primary) hypertension; J45.909 Unspecified asthma, uncomplicated; Z79.899 Other long term (current) drug therapy
CPT/HCPCS: 29125; 96372; 99284